=== PATIENT | female | born 1970 | race Caucasian/White ===

== ENCOUNTER 2023-03-30 08:21 | Outpatient (CLI) | payer MEDICARE, MEDICAID, SELFPAY ==
--- NOTE | ~2023-03-30 | CT_ITS ---
CT Scan of the Chest without Contrast: Clinical Indication: Lung cancer screening, personal history of nicotine dependence Technique: Contiguous sections were acquired throughout the chest without intravenous contrast. Dose reduction technique was used on this scan by utilizing automated exposure control and iterative recon struction technique. The dose-length product (DLP) was 180.65 mGy-cm. Findings: There is no evidence of any significant mediastinal, hilar or axillary lymphadenopathy. The mediastin al soft tissues appear normal. There is no evidence of pleural or pericardial effusion. There is scarring or atelectasis in the lingula. No pulmonary nodule evident otherwise. Images through the upper abdomen reveal no abnormalities. Impression: Lung RADS 1: Negative. 12 month follow-up screening CT advised. Reviewed, dictated and finalized at location . GRINDER Impression: Lung RADS 1: Negative. 12 month follow-up screening CT advised.
--- NOTE | ~2023-03-30 | XR_ITS ---
EXAMINATION: XR lumbar spine 2-3V DATE: 03/30/2023 08:54 INDICATION: Low back pain TECHNIQUE: Anteroposterior and lateral views of the lumbar spine, and cone-down lateral view of the l umbosacral junction were obtained. COMPARISON: MRI, 12/12/2017 FINDINGS: Bone alignment is normal. There is no fracture. There is severe loss of intervertebral disc space height at L4-5. The vertebral body heights are maintained. Small degenerative osteophytes proj ect from the anterior endplates of multiple vertebral bodies. There is multilevel moderate facet join t osteoarthritis. IMPRESSION: 1. Severe lumbar spondylosis at L4-5 without significant interval change. 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
--- NOTE | ~2023-03-30 | XR_ITS ---
Left Knee Technique: AP, lateral, and sunrise views were obtained. Clinical History: Pain Findings: No fracture or dislocation is seen. Osseous alignment is anatomic. Joint spaces are preserv ed without degenerative or erosive change. Soft tissues are unremarkable. No joint effusion is seen. Impression: Unremarkable left knee radiographs. Reviewed, dictated and finalized at location . ALT ROLLER PERSON Impression: Unremarkable left knee radiographs.
--- NOTE | 2023-03-30 08:39 | EST_ITS ---
Patient Info Name: Sarah Burns Age: 52 years : 1970 Gender: Female Ht: 69 in Wt: 210 lbs BSA: 2.18 m2 HR: 81 bpm BP: 142 / 98 mmHg Heart Rhythm: Sinus Rhythm Technical Quality: Good Exam Date: 03/30/2023 10:26 AM Exam Location: [facility] Patient Status: Outpatient Admit Date: 03/30/2023 Staff Ordering Physician: Peace, Sahara Ojeda NP Attending Provider: Peace, Sahara Ojeda NP Exercise Technologist: Bridget Jameson CRT Exercise Physician: Rosi Rosario CEP Exam Type: CA stress zhou w NM Study Info Indications AbnormalEKG - A nuclear stress test was performed. History/Risk Factors Hypertension: Yes Chronic Lung Disease: Yes History/Risk Factors Lung Disease. Hypertension. Summary 1. 1. Negative lexiscan stress test for ischemic ST changes by ECG criteria. 2. 2. Baseline hypertension. 3. 3. Nuclear scan to follow and will be reported separately. Please correlate with it. Protocol: LEXISCAN Stress ECG Details Stage: REST Duration (min): 2 min : 10 sec HR (bpm): 81 SBP (mmHg): 143 DBP (mmHg): 97 Stage: REST Duration (min): 6 min : 22 sec HR (bpm): 76 SBP (mmHg): 143 DBP (mmHg): 97 Stage: STAGE 1 Duration (min): 0 min : 12 sec HR (bpm): 78 SBP (mmHg): 143 DBP (mmHg): 97 Stage: RECOVERY Duration (min): 0 min : 47 sec HR (bpm): 89 SBP (mmHg): 143 DBP (mmHg): 97 Stage: RECOVERY Duration (min): 1 min : 47 sec HR (bpm): 97 SBP (mmHg): 143 DBP (mmHg): 97 Stage: RECOVERY Duration (min): 2 min : 47 sec HR (bpm): 93 SBP (mmHg): 171 DBP (mmHg): 100 Stage: RECOVERY Duration (min): 3 min : 47 sec HR (bpm): 88 SBP (mmHg): 172 DBP (mmHg): 102 Stage: RECOVERY Duration (min): 4 min : 47 sec HR (bpm): 85 SBP (mmHg): 177 DBP (mmHg): 103 Stage: RECOVERY Duration (min): 5 min : 47 sec HR (bpm): 87 SBP (mmHg): 174 DBP (mmHg): 103 Stage: RECOVERY Duration (min): 6 min : 9 sec HR (bpm): 90 SBP (mmHg): 174 DBP (mmHg): 103 Rest HR: 76 bpm Peak HR: 97 bpm Rest Sys BP: 143 mmHg Peak Sys BP: 177 mmHg Max Pred HR: 169 bpm % Max Pred HR: 57 % Target HR: 144 bpm Max RPP: 17,169 bpm*mmHg Termination Reason: Completed protocol Cardiac Symptoms: Anxiety, Flushing Total Time: 0 min : 12 sec Rest Barnard BP: 97 mmHg Peak Barnard BP: 103 mmHg Total Dose: 0.4 mg Resting ECG Sinus rhythm, BRWP. Stress ECG No abnormal ST/T wave changes. Arrhythmias No arrhythmias were observed during the examination. Report Signatures
--- NOTE | 2023-03-30 15:39 | P.NST_ITS ---
Nuclear Stress Test INDICATIONS Indications: Abnormal EKG PROCEDURE Procedure Performed: Myocardial Perf Spect-Multi Procedure: Patient underwent a lexiscan stress test and immediately was injected with 31.6 mCi of cardiolyte. Multiple tomographic images were obtained. These are of good quality. There is evidence of moderate size, mild severity anteroseptal perfusion defect with stress imaging. A separate resting images were obtained after patient was injected with 10.0 mCi of cardiolyte. Multiple tomographic images were obtained. These are of good quality. There is evidence of moderate size, moderate severity anteroseptal perfusion defect with rest imaging. CONCLUSION Conclusion: 1. Myocardial perfusion imaging demonstrates fixed moderate size anteroseptal perfusion defect suggestive of attenuation artifact. 2. No evidence of reversible ischemia. 3. Left ventriculogram demonstrates normal measured ejection fraction of 53% wi th no wall motion abnormalities. 4. TID score is not elevated at 0.95.
== END 2023-03-30 08:22 | disposition home or self-care (01) ==
LOC: CHSIMG 08:25
PROVIDERS: PCP Nurse Practitioner; Visit Provider Nurse Practitioner
DX: J44.9 Chronic obstructive pulmonary disease, unspecified (principal); R94.31 Abnormal electrocardiogram [ECG] [EKG]; Z87.891 Personal history of nicotine dependence; M43.06 Spondylolysis, lumbar region
CPT/HCPCS: 71271; 72100; 73562; 78452; 93017; A9502; J2785

== ENCOUNTER 2023-08-01 11:57 | Emergency (ER) | payer MEDICARE, MEDICAID, SELFPAY ==
[2023-08-01] VITALS (20 sets, daily range): BP systolic 160–221; BP diastolic 97–118; PULSE 48–78; RESP 12–24; TEMP 36.3–36.6; O2SAT 96–100
--- NOTE | ~2023-08-01 | CT_ITS ---
EXAMINATION: CT abdomen pelvis w con DATE: 08/01/2023 13:40 INDICATION: Right lower quadrant abdominal pain for one day TECHNIQUE: Computed tomography (CT) of the abdomen and pelvis was performed with 100 CC Omnipaque 350 intravenous contrast. Automated exposure control and iterative reconstruction technique were employe d. Exam dose: 593.90 mGy-cm total exam DLP. COMPARISON: None. FINDINGS: Minimal discoid atelectasis or scarring at the base of the lingula. No infiltrate or consol idation at the lung bases. No pericardial or pleural effusion. The liver, gallbladder, bile ducts, pancreas, pancreatic duct, spleen are unremarkable. Mild hypertrophy or small adenomas of the adrenal glands. 3 mm distal right ureteral calculus with mild to moderate right hydroureteronephrosis. There are several small nonobstructing right renal calculi, measuring approximately 3-4 mm maximal di mension. 2.2 cm exophytic lateral lower pole right renal cyst. The kidneys are otherwise unremarkable. No left urinary tract calculus or hydroureteronephrosis. The urinary bladder is unremarkable. Uterus and adnexal areas are unremarkable. Normal caliber of the abdominal aorta. No intraperitoneal or retroperitoneal or pelvic mass lesion or adenopathy or ascites. Small sliding hiatal hernia. Normal appendix. No bowel obstruction or intraperitoneal free air. Severe degenerative disc disease at L4-5. IMPRESSION: 3 mm distal right ureteral calculus with mild to moderate right hydroureteronephrosis Nonobstructive right nephrolithiasis 2.2 cm exophytic lateral lower pole right renal cyst Normal appendix Reviewed, dictated and finalized at [facility]. Reviewed, dictated and finalized at location A. IMPRESSION: 3 mm distal right ureteral calculus with mild to moderate right hy droureteronephrosis Nonobstructive right nephrolithiasis 2.2 cm exophytic lateral lower pole right renal cyst Normal appendix
--- NOTE | 2023-08-01 12:00 | PC.NURSE ---
Patient reports she has not had any of her home medications yet today, ERP aware of intial vital signs.
--- NOTE | 2023-08-01 12:08 | ECG_ITS ---
Test Date: 2023-08-01 12:18:17 Measurements Intervals [place] Rate: 61 P: 76 CT: 176 QRS: 7 QRSD: 96 T: 25 QT: 426 QTc: 429 Interpretive Statements SINUS RHYTHM WITHIN NORMAL LIMITS No previous ECG available for comparison Electronically Signed On 08-02-2023 08:52:54 CDT by Ángel Lam M.D.
--- NOTE | 2023-08-01 12:25 | PC.NURSE ---
ERP made aware patient's heart rate is too low for the metoprolol. ERP to change.
[2023-08-01] MEDS: SODIUM CHLORIDE 0.9% IV 1,000 ML 999 ML IV CONT (12:31)
[2023-08-01] MEDS: ONDANSETRON INJ 4 MG/2 ML VIAL IV PUSH (12:32)
[2023-08-01] MEDS: MORPHINE SULFATE (*CRX) 4 MG/ML INJ IV PUSH (12:34)
[2023-08-01] MEDS: ENALAPRILAT 2.5 MG/2 ML VIAL 1.25 MG IV PUSH (12:38)
[2023-08-01 12:59] LABS: Basophils Absolute Auto 0.04 K/mm3 (0.00-0.10); Basophils Percent Auto 0.6 % (0.0-1.0); Eosinophils Percent Auto 2.8 % (1.0-6.0); Hematocrit 35.8 % (35.0-49.0); Hemoglobin 12.2 g/dL (12.0-15.0); Immature Granulocyte Absolute 0.02 K/mm3 (0.00-0.00); Immature Granulocyte Percent A 0.3 % (0.0-0.0); Lymphocytes Absolute Auto 1.14 K/mm3 (1.10-4.50); Lymphocytes Percent Auto 16.1 % (18.0-42.0); Mean Corpuscular HGB Conc 34.1 g/dL (32-36); Mean Corpuscular Hemoglobin 29.7 pg (27.0-31.0); Mean Corpuscular Volume 87.1 fL (78.0-102.0); Mean Platelet Volume 9.4 fl (9.2-11.8); Monocytes Absolute Auto 0.44 K/mm3 (0.10-0.90); Monocytes Percent Auto 6.2 % (2.0-11.0); Neutrophils Absolute Auto 5.24 K/mm3 (1.70-7.20); Platelet Count Result 186 K/mm3 (150-420); Red Blood Count 4.11 M/mm3 (4.20-5.40); White Blood Count 7.1 K/mm3 (4.8-10.8)
[2023-08-01 13:03] LABS: Bilirubin Urine 1+ (Negative); Blood Urine 3+ (Negative); Glucose Urine UA Negative (Negative); Ketones Urine Negative (Negative); Leukocyte Esterase Ur Negative LEU/UL (Negative); Nitrate Urine Negative (Negative); Protein Urine 2+ (Negative); Specific Grav Ur >= 1.030 (1.010-1.020); Urobilinogen Urine 0.2 mg/dL (0.2-1.0)
[2023-08-01 13:07] LABS: Pregnancy On Board Control Positive; Urine Pregnancy Test Negative
[2023-08-01 13:14] LABS: Add Urine Microscopic? YES; Appearance Urine Turbid (Clear); Color Urine Dark Brown (Yellow); RBC Urine >100 /hpf (0-2); Squamous Epithelial Cell Urine Moderate /hpf (Few)
[2023-08-01 13:15] LABS: Bacteria Urine 1+ /hpf; Partial Thromboplastin Time 29.6 Sec (23.9-30.70); Prothrombin Time 10.6 Seconds (9.50-12.1)
--- NOTE | 2023-08-01 13:15 | PC.NURSE ---
patient taken down to Ct
[2023-08-01 13:18] LABS: Alanine Aminotransferase 11 U/L (14-59); Albumin Level 3.6 g/dL (3.4-5.0); Alkaline Phosphatase 87 U/L (46-116); Anion Gap 7 mmol/L (4-12); Aspartate Amino Transferase 13 U/L (15-37); Bilirubin,Total 0.7 mg/dL (0.00-1.00); Blood Urea Nitrogen 10 mg/dL (7-18); Calcium 8.4 mg/dL (8.5-10.1); Carbon Dioxide 26 mmol/L (21-32); Chloride 106 mmol/L (98-108); Estimated Glomerular Filt Rate > 60; Glucose 107 mg/dL (70-99); Lipase 17 U/L (16-77); Osmolality Calculated 287 mOsm/kg (285-295); Potassium 3.3 mmol/L (3.5-5.1); Sodium 139 mmol/L (136-145); Total Protein 6.7 g/dL (6.4-8.2); Troponin I 11.6 ng/L (0.00-60.4)
[2023-08-01 13:21] LABS: Lactic Acid Reflex 0.7 mmol/L (0.4-2.0)
--- NOTE | 2023-08-01 13:33 | ED.ABDPAIN ---
HPI - Abdominal Pain General Chief Complaint: Abdominal Pain Stated Complaint: abd pain Time Seen by Provider: 08/01/23 11:59 Source: patient Mode of arrival: ambulatory Limitations: no limitations History of Present Illness HPI narrative: this is a 53 with history hypertension presents with pain localizing to right lower quadrant and into her right groin and suprapubic area with some hematuria with some right flank discomfort with some nausea no vomiting no fever chills no chest pain or shortness of breath. MD elicited complaint: abdominal pain Onset (ago): hour(s) Pain Consistency: constant Location: RLQ and suprapubic Severity: moderate Pain scale (0-10): 5 Quality: aching Radiation: suprapubic Related Data Home Medications Medication Instructions Recorded Confirmed albuterol sulfate 90 mcg/actuation 2 puff inhalation Q4-6H 08/01/23 08/01/23 aerosol inhaler buspirone 5 mg tablet 5 mg PO TID 08/01/23 08/01/23 cariprazine 3 mg capsule (Vraylar) 3 mg PO DAILY 08/01/23 08/01/23 lisinopril 20 1 tablet PO DAILY 08/01/23 08/01/23 mg-hydrochlorothiazide 12.5 mg tablet metoprolol succinate 50 mg 50 mg PO DAILY 08/01/23 08/01/23 tablet,extended release 24 hr Allergies Allergy/AdvReac Type Severity Reaction Status Date / Time amoxicillin Allergy Intermediate Unknown Verified 08/01/23 12:03 levofloxacin [Levaquin] Allergy Intermediate Unknown Verified 08/01/23 12:03 fluticasone Allergy Unknown Verified 08/01/23 12:03 [From Advair Diskus] salmeterol Allergy Unknown Verified 08/01/23 12:03 [From Advair Diskus] tiotropium Allergy Unknown Verified 08/01/23 12:03 [From Spiriva with HandiHaler] Review of Systems Review of Systems: All systems reviewed & are unremarkable except as noted in HPI and below PMFSH Past Medical History Medical History HTN (hypertension) Family History Family History Other Diabetes mellitus Family history of malignant neoplasm Social History Social History Smoking status: Never smoker Alcohol intake: never Exam Const: General: healthy appearing, no acute distress and alert Nutritional Appearance: well nourished Limitations: no limitations HENMT: Head: normal to inspection Chest: Chest palpation & inspection: normal inspection of the chest Resp: Effort & Inspection: normal respiratory effort Auscultation: clear to auscultation bilaterally Cardio: Rate: regular rate and bradycardic GI: GI Palp: Yes Soft to palpation and Yes Tenderness to palpation present (GI) : General: Yes Bladder palpation abnormal Back/Spine/Pelvis: Back: CVA tenderness Skin: General skin exam: normal color Rashes: no rashes Neuro: General: patient oriented x3 and moves all extremities Extrem: General: normal to inspection, no clubbing, cyanosis or edema and no pedal edema Course Course Emergency Course: labs reviewed white count within normal limits potassium is 3.3 EKG performed shows sinus bradycardia rate about 68, blood pressure 212/104, received 1.25 IV Vasa tech. Urinalysis performed reviewed which shows 1+ bacteria and numerous red blood cells. CT scan of the abdomen pelvis reviewed. Patient received 4mg IV morphine along with Zofran. Vital Signs Vital signs: Vital Signs Temperature 36.3 C L 08/01/23 12:07 Pulse Rate 68 08/01/23 12:07 Respiratory Rate 16 08/01/23 12:07 Blood Pressure 211/112 H 08/01/23 12:07 Pulse Oximetry 99 08/01/23 12:07 Oxygen Delivery Room Air 08/01/23 12:07 Temperature 36.6 C 08/01/23 14:08 Pulse Rate 78 08/01/23 14:08 Respiratory Rate 19 08/01/23 14:08 Blood Pressure 160/102 H 08/01/23 14:08 Pulse Oximetry 98 08/01/23 14:08 Oxygen Delivery Room Air 08/01/23 14:08 MDM - Abdominal Pain Lab Data 07/31
--- NOTE | 2023-08-01 13:39 | PC.NURSE ---
patient back in room from CT
[2023-08-01] MEDS: POTASSIUM BICARBONATE 25 MEQ TABEF 50 MEQ PO (14:05)
--- NOTE | 2023-08-08 13:16 | PC.NURSE ---
blood culture reviewed, no growth noted.,
== END 2023-08-01 14:08 | disposition home or self-care (01) ==
PROVIDERS: Emergency Provider Emergency Medicine
DX: N20.9 Urinary calculus, unspecified (principal); I10 Essential (primary) hypertension; N39.0 Urinary tract infection, site not specified; Z79.899 Other long term (current) drug therapy
CPT/HCPCS: 36415; 74177; 80053; 81001; 81025; 83605; 83690; 84484; 85025; 85610; 85730; 87040; 93005; 96361; 96374; 96375; 99284; A9270; J2270; J2405; J7030; Q9967